=== PATIENT | female | born 1975 | race Caucasian/White ===

== ENCOUNTER 2022-08-08 10:15 | Outpatient (REF) | payer MEDICARE, MEDICAID, SELFPAY ==
[2022-08-08 14:51] LABS: Calculated LDL 74 mg/dL (<100); Cholesterol 200 mg/dL (<200); HDL Cholesterol 101 mg/dL (40-60); Triglyceride 125 mg/dL (<150)
== END 2022-08-08 10:16 | disposition home or self-care (01) ==
LOC: NCHCN 10:15
PROVIDERS: Visit Provider Nurse Practitioner Family
DX: Z00.00 Encounter for general adult medical examination without abnormal findings (principal); Z13.220 Encounter for screening for lipoid disorders
CPT/HCPCS: 80061

== ENCOUNTER 2022-10-08 12:05 | Outpatient (REF) | payer MEDICARE, MEDICAID, SELFPAY ==
[2022-10-08 16:11] LABS: Abs Immature Grans 0.02 10^3/uL (0.0-0.06); Absolute Basophil Count 0.02 10^3/uL (0.0-0.2); Absolute Lymphocyte Count 0.44 10^3/uL (1.2-3.4); Absolute Monocyte Count 0.52 10^3/uL (0.1-0.8); Absolute Neutrophil Count 5.21 10^3/uL (1.2-6.7); Basophils % 0.3; Eosinophils % 3.1; HCT 39.2 % (36.0-46.0); HGB 12.3 g/dL (11.2-15.7); Immature Grans % 0.3; Lymphocytes % 6.9; MCH 29.6 pg (27.0-33.0); MCHC 31.4 % (32.0-36.0); MCV 95 fL (80-95); MPV 11.1 fL (8.0-11.0); Monocytes % 8.1; Neutrophils % 81.3; Platelet Count 280 10^3/uL (130-400); RBC 4.15 10^6/uL (3.93-5.22); RDW 13.2 % (11.7-14.6); RDW-SD 45.8 fL; WBC 6.41 10^3/uL (4.4-10.8)
[2022-10-08 17:06] LABS: ALT 23 U/L (14-59); AST 23 U/L (15-37); Albumin 4.5 g/dL (3.4-5.0); Alkaline Phosphatase 115 U/L (46-116); Anion Gap 7.5 mmol/L (3-11); BUN 21 mg/dL (7-18); Bilirubin, Total 0.2 mg/dL (0.2-1.0); CO2 29.5 mmol/L (21.0-32.0); CREATININE 1.2 mg/dL (0.55-1.02); Calcium 9.7 mg/dL (8.5-10.1); Chloride 104 mmol/L (98-107); Estimated GFR 57.24 (mL/min/1.73m2); Glucose 109 mg/dL (74-106); Sodium 141 mmol/L (136-145); Total Protein 7.6 g/dL (6.4-8.2)
[2022-10-09 10:07] LABS: Hepatitis C Ab w Rflx HCV PCR Negative (Negative)
[2022-10-09 10:49] LABS: HIV-1/2 Ag & Ab Screen Negative (Negative)
[2022-10-14 09:00] LABS: Amphetamines Negative ng/mL (Cutoff: 20); Methamphetamine Negative ng/mL (Cutoff: 20)
[2022-10-14 09:01] LABS: Barbiturates Negative ng/mL (Cutoff: 50); Benzodiazepines Negative ng/mL (Cutoff: 50); Buprenorphine Negative ng/mL (Cutoff: 1); Cocaine Negative ng/mL (Cutoff: 20); Methadone Negative ng/mL (Cutoff: 25); Opiates Negative ng/mL (Cutoff: 20); Phencyclidine Negative ng/mL (Cutoff: 10)
== END 2022-10-08 12:06 | disposition home or self-care (01) ==
LOC: NCHCN 12:05
PROVIDERS: PCP Nurse Practitioner Family; Visit Provider Nurse Practitioner Family
DX: Z11.4 Encounter for screening for human immunodeficiency virus [HIV] (principal); Z11.59 Encounter for screening for other viral diseases; Z79.899 Other long term (current) drug therapy; R73.09 Other abnormal glucose; R68.89 Other general symptoms and signs
CPT/HCPCS: 80053; 86803; 87389; 80307; 84443; 85025

== ENCOUNTER 2023-09-02 10:01 | Outpatient (REF) | payer MEDICARE, MEDICAID, SELFPAY ==
--- OUTSIDE RECORDS SUMMARY | 2023-09-02 10:07 | XMS_ITS | CCD ---
Author Name Unknown Address [address] [place] [address] [id number] Organization Unknown Address [address] [place] [address] [id number] Care Team Providers Care Aircraft Lay Out Worker Name Role Phone ADRIA TRINIDAD Attending Physician [phone] Vital Signs Unknown or Not Available. Allergies Unknown or Not Available. Procedures Unknown or Not Available. History of Immunizations Unknown or Not Available. Problems Problem Code Start Date Resolved Date Status Multiple sclerosis [id number] 06/13/2023 Resolv ed CRPS [id number] 06/13/2023 Resolved Depression 88437057 06/13/2023 Resolved Anxiety 79524398 06/13/2023 Resolved Results Unknown or Not Available. Active Medications Unknown or Not Available. Medications Administered During Visit Unknown or Not Available. Encounters Encounter Diagnosis Diagnosis Code Start Date Refusal of treatment by patient [id number] 12/09/2022 Social History Unknown or Not Available. Patient Decision Aids Unknown or Not Available. Discharge Instructions You were admitted to [facility] on 12/09/2022 10:37 with a principal diagnosis of Procedure and treatment not carried out because of patient's decision for other reasons You were discharged from [facility] on 12/09/2022 10:37 Should you have any questions prior to discharge, please contact a member of your healthcare team. If you have left the hospital and have any questions, please contact your primary care physician. Chief Complaint and Reason For Visit Unknown or Not Available. Function Status Unknown or Not Available. Plan of Care Unknown or Not Available. Referral/Transition of Care Unknown or Not Available.
--- OUTSIDE RECORDS SUMMARY | 2023-09-02 10:07 | XMS_ITS | CCD ---
Author Name Unknown Address [address] [place] [address] [phone] Organization Unknown Address [address] [place] [address] [id number] Care Team Providers Care Biomedical Engineering Professor Name Role Phone MELONIE YAP Attending Physician [phone] MELONIE YAP Rounding (Secondary) Physician [phone] Vital Signs Unknown or Not Available. Allergies Unknown or Not Available. Procedures Unknown or Not Available. History of Immunizations Unknown or Not Available. Problems Problem Code Start Date Resolved Date Status Multiple sclerosis 72422978 06/13/2023 Resolv ed CRPS 817745028 06/13/2023 Resolved Depression 72146016 06/13/2023 Resolved Anxiety 76846948 06/13/2023 Resolved Results BASIC METABOLIC PANEL (BMP) - Collect Date/Time: 12/31/2021 10:08 Test Name Code Test Result Test Units Test Ref Rang e GLUCOSE 2345-7 100 mg/dL L=70 H=116 BUN 3094-0 23 mg/dL L=6 H=25 CREATININE 2160-0 1.01 mg/dL L=0.51 H=0.95 SODIUM SERUM 2951-2 136 mmol/L L=136 H=145 POTASSIUM SERUM 2823-3 4.4 mmol/L L=3.4 H=5 .2 CHLORIDE SERUM 2075-0 101 mmol/L L=96 H=110 CARBON DIOXIDE (CO2) 2028-9 29 mmol/L L=22 H=34 ANION GAP 84304-5 5.6 mmol/L CALCIUM SERUM 50152-8 8.8 mg/dL L=8.2 H=10. 2 AGE 46 years eGFR (non-Afr.Amer.) 71951-1 60 mL/min eGFR (Afr-Bangladeshi) 71824-4 72 mL/min Active Medications Unknown or Not Available. Medications Administered During Visit Unknown or Not Available. Encounters Encounter Diagnosis Diagnosis Code Start Date Localized swelling, mass and lump, trunk R222 12/31/2021 Social History Unknown or Not Available. Patient Decision Aids Unknown or Not Available. Discharge Instructions You were admitted to [facility] on 12/31/2021 11:45 with a principal diagnosis of Localized swelling, mass and lump, trunk You had the following tests done:BASIC METABOLIC PANEL (BMP) You were discharged from [facility] on 12/31/2021 00:00 Should you have any questions prior to [...]
--- OUTSIDE RECORDS SUMMARY | 2023-09-02 10:07 | XMS_ITS | CCD ---
Author Name Unknown Address [address] [place] [address] [id number] Organization Unknown Address [address] [place] [address] [phone] Care Team Providers Care Plate Furnace Operator Name Role Phone SMILEY MYRICK Attending Physician [phone] SMILEY MYRICK Er Physician [phone] HILARIA Clements Registered Nurse [phone] Vital Signs Vital Sign Value Unit Date/Time Recent/Initial ? BMI (Body Mass Index) 29.23 kg/m^2 06/13/2023 08: 32 Initial VS Weight Measured 165 lbs 06/13/2023 08:32 Ini tial VS Height 63 in 06/13/2023 08:32 Initial VS BSA (Body Surface Area) 1.82 m^2 06/13/2023 0 8:32 Initial VS BP Systolic 120 mmHg 06/13/2023 08:32 Initial VS BP Diastolic 73 mmHg 06/13/2023 08:32 Initia l VS Respiratory Rate 18 bpm 06/13/2023 08:32 In itial VS Heart Rate 81 bpm 06/13/2023 08:32 Initial VS O2 % BldC Oximetry 97 % 06/13/2023 08:32 Initial VS Body Temperature 35.9 degrees 06/13/2023 08:32 In itial VS Allergies Allergy Code Allergy Type Reaction Status REMERON 027270 Drug allergy Active Procedures Unknown or Not Available. History of Immunizations Unknown or Not Available. Problems Problem Code Start Date Resolved Date Status Multiple sclerosis 31003515 06/13/2023 Resolv ed CRPS 744597017 06/13/2023 Resolved Depression 98191679 06/13/2023 Resolved Anxiety 55312511 06/13/2023 Resolved Results Unknown or Not Available. Active Medications Unknown or Not Available. Medications Administered During Visit Unknown or Not Available. Encounters Encounter Diagnosis Diagnosis Code Start Date Unspecified fracture of shaf t of right fibula, initial encounter for closed fracture [id number] 06/13/2023 Social History Unknown or Not Available. Patient Decision Aids Unknown or Not Available. Discharge Instructions You were admitted to [facility] on 06/13/2023 08:32 with a principal diagnosis of Unspecified fracture of shaft of right fibula, initial encounter for closed fracture You were discharged from [facility] on 06/13/2023 09:42 Should you have any questions prior to discharge, please contact a member of your healthcare team. If you have left the hospital and have any questions, please contact your primary care physician. Chief Complaint and Reason For Visit Chief Complaint Date of Onset RIGHT ANKLE PAIN Function Status Unknown or Not Available. Plan of Care Unknown or Not Available. Referral/Transition of Care Unknown or Not Available.
--- OUTSIDE RECORDS SUMMARY | 2023-09-02 10:07 | XMS_ITS | CCD ---
Author Name Unknown Address [address] [place] [address] [phone] Organization Unknown Address [address] [place] [address] [phone] Care Team Providers Care Cigar Head Holer Name Role Phone PABLO MAYNARD Attending Physician [phone] MITCHELL PUTNAM Er Physician 1 [phone] TICO Palafox Registered Nurse [phone] DILCIA Palafox Registered Nurse [phone] Vital Signs Vital Sign Value Unit Date/Time Recent/Initial ? BP Systolic 126 mmHg 11/23/2022 11:05 Initial VS BP Diastolic 86 mmHg 11/23/2022 11:05 Initia l VS Respiratory Rate 18 bpm 11/23/2022 11:05 In itial VS Heart Rate 86 bpm 11/23/2022 11:05 Initial VS O2 % BldC Oximetry 94 % 11/23/2022 11:05 Initial VS BMI (Body Mass Index) 27.99 kg/m^2 11/23/2022 11: 16 Initial VS Weight Measured 158 lbs 11/23/2022 11:16 Ini tial VS Height 63 in 11/23/2022 11:16 Initial VS BSA (Body Surface Area) 1.78 m^2 11/23/2022 1 1:16 Initial VS Body Temperature 36.1 degrees 11/23/2022 11:16 In itial VS BP Systolic 137 mmHg 11/23/2022 13:36 Most Re cent VS BP Diastolic 78 mmHg 11/23/2022 13:36 Most R ecent VS Respiratory Rate 18 bpm 11/23/2022 13:[address] Recent VS Heart Rate 84 bpm 11/23/2022 13:36 Most Rec ent VS O2 % BldC Oximetry 97 % 11/23/2022 13:36 Most Recent VS Allergies Unknown or Not Available. Procedures Unknown or Not Available. History of Immunizations Unknown or Not Available. Problems Problem Code Start Date Resolved Date Status Multiple sclerosis 01307973 06/13/2023 Resolv ed CRPS 753474987 06/13/2023 Resolved Depression 00292125 06/13/2023 Resolved Anxiety 94987506 06/13/2023 Resolved Results COMPREHENSIVE METABOLIC PANE L (CMP) - Collect Date/Time: 11/23/2022 11:00 Test Name Code Test Result Test Units Test Ref Rang e GLUCOSE 2345-7 142 mg/dL L=70 H=116 BUN 3094-0 14 mg/dL L=6 H=25 CREATININE 2160-0 1.27 mg/dL L=0.51 H=0.95 SODIUM SERUM 2951-2 140 mmol/L L=136 H=145 POTASSIUM SERUM 2823-3 3.5 mmol/L L=3.4 H=5 .2 CHLORIDE SERUM 2075-0 102 mmol/L L=96 H=110 CARBON DIOXIDE (CO2) 2028-9 32 mmol/L L=22 H=34 ANION GAP 65330-4 5.7 mmol/L CALCIUM SERUM 63045-2 9.1 mg/dL L=8.2 H=10. 2 BILIRUBIN TOTAL 1975-2 0.3 mg/dL L=0.0 H=1 .3 ALK. PHOS. 6768-6 104 U/L L=46 H=116 SGOT (AST) 1920-8 25 U/L L=15 H=37 SGPT (ALT) 1742-6 24 U/L L=12 H=78 TOTAL PROTEIN 2885-2 7.2 gm/dL L=6.0 H=8.0 ALBUMIN 1751-7 4.0 gm/dL L=3.4 H=5.0 AGE 46 years eGFR (non-Afr.Amer.) 17167-7 46 mL/min eGFR (Afr-Belgian) 53705-9 55 mL/min LACTIC ACID - Collect Date/T carline: 11/23/2022 11:00 Test Name Code Test Result Test Units Test Ref Rang e LACTIC ACID 69215-6 1.5 mmol/L L=0.7 H=2.1 MAGNESIUM SERUM* - Collect D ate/Time: 11/23/2022 11:00 Test Name Code Test Result Test Units Test Ref Rang e MAGNESIUM 65503-3 1.6 mg/dL L=1.8 H=2.4 CBC W/ DIFFERENTIAL* - Colle ct Date/Time: 11/23/2022 11:00 Test Name Code Test Result Test Units Test Ref Rang e WBC 6690-2 4.28 th/cmm L=5.00 H=10.00 NEUT % 75.2 % L=40.0 H=80.0 LYMPH % 10.3 % L=10.0 H=50.0 MONO % 45600-1 9.3 % L=2.0 H=12.0 EOS % 3.5 % L=0.0 H=8.0 BASO % 0.5 % L=0.0 H=3.0 IG % 2514-8 1.2 % L=0.0 H=1.1 NRBC % 51035-9 0.0 % L=0.0 H=0.0 NEUT abs count 751-8 3.2 th/cmm L=1.6 H=8. 4 LYMPH abs count 731-0 0.4 th/cmm L=1.5 H=4 .0 MONO abs count 742-7 0.4 th/cmm L=0.2 H=1. 0 EOS abs count 711-2 0.2 th/cmm L=0.0 H=0.5 BASO abs count 704-7 0.0 th/cmm L=0.0 H=0. 2 IG abs count 38710-4 0.1 th/cmm L=0.0 H=0.1 NRBC abs count 68502-6 0.0 mil/cmm L=0.0 H=0. 0 RBC 789-8 4.02 mil/cmm L=3.90 H=5.40 HEMOGLOBIN 718-7 12.5 gm/dL L=12.0 H=16.0 HEMATOCRIT 4544-3 39 % L=37 H=47 MCV 787-2 96 fL L=82 H=92 MCH 785-6 31.1 pg L=27.0 H=31.0 MCHC 786-4 32.4 % L=32.0 H=36.0 RDW-SD 788-0 46.7 fL L=39.0 H=49.0 PLATELET COUNT 777-3 257 th/cmm L=150 H=45 0 CULT URINE CULTURE* - Colle t Date/Time: 11/23/2022 12:39 Test Name Code Test Result Test Units Test Ref Rang e COLLECTION MODE: 58422-2 CLEAN CATCH N/A TEST QUAL (URINE) - Collect Date/Time: 11/23/2022 12:39 Test Name Code Test Result Test Units Test Ref Rang e TEST 2106-3 NEGATIVE N/A URINALYSIS WITH REFLEX CULT IF POSITIVE* - Collect Date/Time: 11/23/2022 12:39 Test Name Code Test Result Test Units Test Ref Rang e COLLECTION MODE: 03943-1 CLEAN CATCH N/A Color 5778-6 YELLOW N/A yellow Appearance 5767-9 CLEAR N/A clear Glucose urine 45452-2 NEGATIVE N/A negative mg /dl Bilirubin 5770-3 NEGATIVE N/A negative Ketones 2514-8 NEGATIVE N/A negative mg/dl Spec gravity 5811-5 1.025 N/A 1.003 - 1.03 0 pH urine 2756-5 6.5 N/A 5.0 - 7.0 Protein 45816-2 NEGATIVE N/A negative mg/dl Urobilinogen 76601-8 0.2 N/A <or= 1 EU/dl Nitrite. 5802-4 NEGATIVE N/A negative Blood 5794-3 NEGATIVE N/A negative Leukocytes. MODERATE N/A negative MICROSCOPIC INDICATED N/A WBCs. 73048-5 5-10 N/A 0-5 / hpf RBCs 35695-9 0-5 N/A 0-5 / hpf Epith cells 88649-1 0-5 N/A 0-5 / hpf Cell types squamous N/A Crystals none N/A none Bacteria minimal N/A none Mucus 8247-9 none N/A none Casts 83535-0 none N/A none /lpf Active Medications Medications Administered During Visit Medication Dose Units Frequency Route Date/Time of Last Dose SODIUM CHLORIDE 0.9% 1000ML 1000 ML X1 11/23/2022 12:14 Encounters Encounter Diagnosis Diagnosis Code Start Date Syncope and collapse R55 11/23/2022 Social History Unknown or Not Available. Patient Decision Aids Unknown or Not Available. Discharge Instructions You were admitted to [facility] on 11/23/2022 10:25 with a principal diagnosis of Syncope and collapse You had the following tests done:CULT URINE CULTURE* TEST QUAL (URINE)URINALYSIS WITH REFLEX CULT IF POSITIVE*CBC W/ DIFFERENTIAL*COMPREHENSIVE METABOLIC PANEL (CMP)LACTIC ACIDMAGNESIUM SERUM* You were discharged from [facility] on 11/23/2022 13:47 Should you have any questions prior to discharge, please contact a member of your healthcare team. If you have left the hospital and have any questions, please contact your primary care physician. Chief Complaint and Reason For Visit Chief Complaint Date of Onset SEIZURE Function Status Unknown or Not Available. Plan of Care Unknown or Not Available. Referral/Transition of Care Unknown or Not Available.
--- OUTSIDE RECORDS SUMMARY | 2023-09-02 10:07 | XMS_ITS | CCD ---
Author Name Unknown Address [address] [place] [address] [phone] Organization Unknown Address [address] [place] [address] [phone] Care Team Providers Care Cotton Roll Packer Name Role Phone MATTHEW METZ Attending Physician [phone] MATTHEW METZ Rounding (Secondary) Physician [phone] Vital Signs Unknown or Not Available. Allergies Allergy Code Allergy Type Reaction Status [facility] 016456 Drug allergy Active Procedures Unknown or Not Available. History of Immunizations Unknown or Not Available. Problems Unknown or Not Available. Results Unknown or Not Available. Active Medications Unknown or Not Available. Medications Administered During Visit Unknown or Not Available. Encounters Encounter Diagnosis Diagnosis Code Start Date Other fracture of upper and lower end of right fibula, subsequent encounter for closed fracture with routine healing [id number] 07/07/2023 Social History Unknown or Not Available. Patient Decision Aids Unknown or Not Available. Discharge Instructions You were admitted to [facility] on 07/07/2023 00:00 with a principal diagnosis of Other fracture of upper and lower end of right fibula, subsequent encounter for closed fracture with routine healing You were discharged from [facility] on 07/07/2023 09:05 Should you have any questions prior to [...]
--- OUTSIDE RECORDS SUMMARY | 2023-09-02 10:08 | XMS_ITS | CCD ---
Author Name Unknown Address [address] [place] [address] [id number] Organization Unknown Address [address] [place] [address] [phone] Care Team Providers Care Final Coat Sprayer Name Role Phone MELONIE YAP Attending Physician [phone] MELONIE YAP Rounding (Secondary) Physician [phone] Vital Signs Unknown or Not Available. Allergies Unknown or Not Available. Procedures Unknown or Not Available. History of Immunizations Unknown or Not Available. Problems Problem Code Start Date Resolved Date Status Multiple sclerosis 95853437 06/13/2023 Resolv ed CRPS 344599232 06/13/2023 Resolved Depression 09525412 06/13/2023 Resolved Anxiety 99366623 06/13/2023 Resolved Results Unknown or Not Available. Active Medications Unknown or Not Available. Medications Administered During Visit Unknown or Not Available. Encounters Encounter Diagnosis Diagnosis Code Start Date Person consulting for explan ation of examination or test findings Z712 01/01/2022 Social History Unknown or Not Available. Patient Decision Aids Unknown or Not Available. Discharge Instructions You were admitted to [facility] on 01/01/2022 10:57 with a principal diagnosis of Person consulting for explanation of examination or test findings You were discharged from [facility] on 01/01/2022 00:00 Should you have any questions prior [...]
[2023-09-02 15:40] LABS: Abs Immature Grans 0.02 10^3/uL (0.0-0.06); Absolute Basophil Count 0.03 10^3/uL (0.0-0.2); Absolute Eosinophil Count 0.11 10^3/uL (0.0-0.7); Absolute Lymphocyte Count 1.64 10^3/uL (1.2-3.4); Absolute Monocyte Count 0.46 10^3/uL (0.1-0.8); Absolute Neutrophil Count 1.94 10^3/uL (1.2-6.7); Basophils % 0.7; Eosinophils % 2.6; HCT 37.3 % (36.0-46.0); Immature Grans % 0.5; MCH 29.1 pg (27.0-33.0); MCHC 32.2 % (32.0-36.0); MCV 90 fL (80-95); MPV 10.5 fL (8.0-11.0); Neutrophils % 46.2; Platelet Count 270 10^3/uL (130-400); RBC 4.13 10^6/uL (3.93-5.22); RDW 13.2 % (11.7-14.6); RDW-SD 43.3 fL
[2023-09-02 16:00] LABS: ALT 22 U/L (14-59); AST 16 U/L (15-37); Albumin 4.3 g/dL (3.4-5.0); Alkaline Phosphatase 98 U/L (46-116); Anion Gap 8.9 mmol/L (3-11); BUN 21 mg/dL (7-18); Bilirubin, Total 0.2 mg/dL (0.2-1.0); CO2 28.1 mmol/L (21.0-32.0); CREATININE 1.2 mg/dL (0.55-1.02); Calcium 8.9 mg/dL (8.5-10.1); Calculated LDL 138 mg/dL (<100); Chloride 103 mmol/L (98-107); Cholesterol 266 mg/dL (<200); Estimated GFR 56.89 (mL/min/1.73m2); Glucose 106 mg/dL (74-106); HDL Cholesterol 115 mg/dL (40-60); Potassium 4.1 mmol/L (3.5-5.1); Sodium 140 mmol/L (136-145); TSH (W/Ref FT4) 3.06 uIU/mL (0.36-3.74); Total Protein 6.9 g/dL (6.4-8.2); Triglyceride 68 mg/dL (<150)
[2023-09-02 16:15] LABS: Hemoglobin A1C 5.2 % (<5.7)
== END 2023-09-02 10:02 | disposition home or self-care (01) ==
LOC: LBN 10:01
PROVIDERS: PCP Nurse Practitioner Family; Visit Provider Psychiatry & Neurology Psychiatry
DX: F33.1 Major depressive disorder, recurrent, moderate (principal); Z79.899 Other long term (current) drug therapy
CPT/HCPCS: 80053; 80061; 83036; 84443; 85025